=== PATIENT | female | born 1980 | race Caucasian/White ===

== ENCOUNTER 2017-10-12 21:06 | Emergency (ER) | payer MEDICAID, OTHER ==
[~2017-10-12] VITALS: Ht 154.9 cm; Wt 100.0 kg
[~2017-10-12 21:06] MED LIST: CYCL-36 PO; NAPR-576 PO
[2017-10-12 21:11] VITALS: BP 131/86; PULSE 107; RESP 18; TEMP 98.9; O2SAT 99
[2017-10-12] MEDS ORDERED: SODIUM CHLOR 0.9% 1000 ML INJ 1,000 ML IV SCH (22:17)
[2017-10-12 22:29] VITALS: RESP 16; O2SAT 99
[2017-10-12] MEDS ORDERED: SODIUM CHLORIDE 0.9% FLUSH 10 ML FLUSH IV FLUSH PRN (22:30)
[2017-10-12 22:37] LABS: AUTOMATED NEUTROPHIL # 7.3 TH/MM3 (1.8-7.7); BASOPHIL # 0.1 TH/MM3 (0-0.2); BASOPHIL % 0.7 % (0.0-2.0); EOSINOPHIL # 0.1 TH/MM3 (0-0.4); EOSINOPHIL % 0.8 % (0.0-4.0); HEMOGLOBIN 12.5 GM/DL (11.6-15.3); LYMPH % 23.5 % (9.0-44.0); LYMPHOCYTE # 2.6 TH/MM3 (1.0-4.8); MEAN CELL VOLUME 79.8 FL (80.0-100.0); MEAN CORPUSCULAR HGB CONC 33.8 % (32.0-36.0); MEAN PLATELET VOLUME 7.2 FL (7.0-11.0); MONO % 8.5 % (0.0-8.0); MONOCYTE # 0.9 TH/MM3 (0-0.9); NEUT % 66.5 % (16.0-70.0); PLATELET COUNT 272 TH/MM3 (150-450); RED BLOOD COUNT 4.64 MIL/MM3 (4.00-5.30); RED CELL DISTRIBUTION WIDTH 17.4 % (11.6-17.2); WHITE BLOOD COUNT 10.9 TH/MM3 (4.0-11.0)
[2017-10-12 22:58] LABS: AST (GOT) 27 U/L (15-37); BICARBONATE 24.9 MEQ/L (21.0-32.0); BLOOD UREA NITROGEN 9 MG/DL (7-18); CALCIUM 8.6 MG/DL (8.5-10.1); CHLORIDE 107 MEQ/L (98-107); CREATININE 0.65 MG/DL (0.50-1.00); GLOMERULAR FILTRATION RATE 103 ML/MIN (>89); GLUCOSE,RANDOM 75 MG/DL (74-106); SODIUM (NA) 139 MEQ/L (136-145)
[2017-10-12 23:16] LABS: ALKALINE PHOSPHATASE 85 U/L (45-117); ALT (GPT) 36 U/L (10-53); TOTAL BILIRUBIN ADULT 0.2 MG/DL (0.2-1.0)
--- NOTE | 2017-10-12 23:39 | PD ---
HPI Chief Complaint: Related Problem Time Seen by Provider: 22:17 Travel History International Travel<30 days: No Contact w/Intl Traveler<30days: No Traveled to known affect area: No History of Present Illness HPI Patient is a 37-year-old female at approximately 11 weeks gestational age presents emergency department for evaluation of vaginal bleeding and left lower quadrant abdominal cramping. Patient states been going on and off for the past 48 hours, she went to her SENIOR MEDICAL BILLING SPECIALIST today who did a pelvic exam noted that she was having some mild bleeding but did not give her an exhalation Y. She also had an ultrasound today which did show an 11 week gestation. She was discharged home. She states the pain and bleeding persisted and she has had passing pain need a quarter sized clots. She has not had any hypovolemia symptoms. She knows that she has an Rh- blood type has not had a RhoGam shot yet this . She states that her also has Rh- blood type. No chest pain no shortness of breath no nausea vomiting diarrhea constipation. Symptoms moderate, intermittent, context and associated signs symptoms as above PFSH Past Medical History Diminished Hearing: No Genitourinary: Yes (UTI'S. LAST ONE ABOUT 6 MONTHS AGO.) Integumentary: Yes (WOUND ON LEFT THIGH--HERE 04/14/08) Immunizations Current: Yes ?: : 1 Para: 1 Miscarriage: 0 : 0 Past Surgical History Section: Yes (x 1) Oral Surgery: Yes (WISDOM TEETH OUT) Social History Alcohol Use: No Tobacco Use: No Substance Use: No Allergies-Medications (Allergen,Severity, Reaction): Coded Allergies: amoxicillin (Unverified Adverse Reaction, Severe, Nausea/Vomiting, 10/12/17) penicillin G (Unverified Adverse Reaction, Severe, Nausea/Vomiting, 10/12/17 ) Reported Meds & Prescriptions Reported Meds & Active Scripts Active Metrogel Vaginal Gel (Metronidazole Vaginal Gel) 0.75 % Gel 1 Appl VAGINAL HS Flexeril (Cyclobenzaprine HCl) 10 Mg Tab 10 Mg PO Q12HR Naproxen 500 Mg Tab 500 Mg PO Q12HR Review of Systems Except as stated in HPI: all other systems reviewed are Neg Physical Exam Narrative GENERAL: Well-developed well-nourished no obvious distress, obese. SKIN: Focused skin assessment warm/dry. HEAD: Atraumatic. Normocephalic. EYES: Pupils equal and round. No scleral icterus. No injection or drainage. ENT: No nasal bleeding or discharge. Mucous membranes pink and moist. NECK: Trachea midline. No JVD. CARDIOVASCULAR: Regular rate and rhythm. No murmur appreciated. RESPIRATORY: No accessory muscle use. Clear to auscultation. Breath sounds equal bilaterally. GASTROINTESTINAL: Abdomen soft, non-tender, nondistended. Hepatic and splenic margins not palpable. GENITOURINARY: Exam performed with female nurse lamination builder present all times, scant blood in the vaginal vault associate with membranes at the cervical eyes, the eyes is closed, bimanual exam is deferred as the patient had some tenderness from pelvic ultrasound. No tears seen. MUSCULOSKELETAL: No obvious deformities. No clubbing. No cyanosis. No edema. NEUROLOGICAL: Awake and alert. No obvious cranial nerve deficits. Motor grossly within normal limits. Normal speech. PSYCHIATRIC: Appropriate mood and affect; insight and judgment normal. Data Data Last Documented VS Vital Signs Date Time Temp Pulse Resp B/P (MAP) Pulse Ox O2 Delivery O2 Flow Rate FiO2 10/12/17 22:29 16 99 Room Air 10/12/17 21:11 98.9 107 131/86 (101) Orders Orders Beta Hcg (Quant/Titer) (10/12/17 22:17) Complete Blood Count With Diff (10/12/17 22:17) Comprehensive Metabolic Panel (10/12/17 22:17) Urinalysis - C+S If Indicated (10/12/17 22:17) Iv Access Insert/Monitor (10/12/17 22:17) Ecg Monitoring (10/12/17 22:17) Oximetry (10/12/17 22:17) Sodium Chlor 0.9% 1000 Ml Inj (Ns 1000 M (10/12/17 22:17) Sodium Chloride 0.9% Flush (Ns Flush) (10/12/17 22:30) Abo/Rh Blood Type (10/12/17 22:17) Wet Prep Profile (10/12/17 22:17) Gc And Chlamydia Pcr (10/12/17 22:17) Us Pelvis (Ques Preg/Ectopic) (10/12/17 ) Rhogam Only (10/13/17 00:03) Sodium Chlor 0.9% 250 Ml Inj (Ns 250 Ml (10/13/17 00:15) Ed Discharge Order (10/13/17 00:37) Labs Laboratory Tests Test 10/12/17 22:25 10/13/17 00:10 White Blood Count 10.9 TH/MM3 Red Blood Count 4.64 MIL/MM3 Hemoglobin 12.5 GM/DL Hematocrit 37.0 % Mean Corpuscular Volume 79.8 FL Mean Corpuscular Hemoglobin 27.0 PG Mean Corpuscular Hemoglobin Concent 33.8 % Red Cell Distribution Width 17.4 % Platelet Count 272 TH/MM3 Mean Platelet Volume 7.2 FL Neutrophils (%) (Auto) 66.5 % Lymphocytes (%) (Auto) 23.5 % Monocytes (%) (Auto) 8.5 % Eosinophils (%) (Auto) 0.8 % Basophils (%) (Auto) 0.7 % Neutrophils # (Auto) 7.3 TH/MM3 Lymphocytes # (Auto) 2.6 TH/MM3 Monocytes # (Auto) 0.9 TH/MM3 Eosinophils # (Auto) 0.1 TH/MM3 Basophils # (Auto) 0.1 TH/MM3 CBC Comment DIFF FINAL Differential Comment Blood Urea Nitrogen 9 MG/DL Creatinine 0.65 MG/DL Random Glucose 75 MG/DL Total Protein 7.0 GM/DL Albumin 3.0 GM/DL Calcium Level 8.6 MG/DL Alkaline Phosphatase 85 U/L Aspartate Amino Transf (AST/SGOT) 27 U/L Alanine Aminotransferase (ALT/SGPT) 36 U/L Total Bilirubin 0.2 MG/DL Sodium Level 139 MEQ/L Potassium Level 3.7 MEQ/L Chloride Level 107 MEQ/L Carbon Dioxide Level 24.9 MEQ/L Anion Gap 7 MEQ/L Estimat Glomerular Filtration Rate 103 ML/MIN Human Chorionic Gonadotropin, Quant 76350 MIU/ML Clue Cells (Wet Prep) PRESENT Vaginal Trichomonas (Wet Prep) NONE SEEN Vaginal Yeast (Wet Prep) NONE SEEN Chlamydia trachomatis DNA (PCR) NOT DETECTED Neisseria gonorrhoeae DNA (PCR) NOT DETECTED MDM Medical Decision Making Medical Screen Exam Complete: Yes Emergency Medical Condition: Yes Differential Diagnosis Rh mismatch, anemia, threatened miscarriage, inevitable miscarriage. Narrative Course Patient room to the emergency department, RhoGam given, she is not significantly anemic, ultrasound is actually reassuring Last 24 hours Impressions Pelvis Ultrasound 10/12/17 0000 Signed Impressions: Service Date/Time: Thursday, October 12, 2017 23:13 - CONCLUSION: Intrauterine gestational sac with a apparently viable intrauterine fetus estimated to be 12 weeks 2 days old. Josue Dubon MD Patient reassured, discussed that this is a threatened miscarriage. She is too early for any advanced countermeasures, we discussed no drinking no smoking pelvic rest and taking vitamins. No illicit substance use. Discussed that she needs follow-up with her SENIOR MEDICAL BILLING SPECIALIST and discuss return to ED criteria. She was offered Tylenol emergency department and declined. She is stable for discharge Diagnosis Primary Impression: Abdominal pain affecting Additional Impressions: Bacterial vaginosis Threatened miscarriage Rh incompatibility Qualified Codes: T80.40XA - Rh incompatibility reaction due to transfusion of blood or blood products, unspecified, initial encounter Med/Other Pt SpecificInfo: Prescription(s) given Scripts Metronidazole Vaginal Gel (Metrogel Vaginal Gel) 0.75 % Gel 1 APPL VAGINAL HS for Infection, #1 TUBE 0 Refills Prov: Ham Naqvi MD 10/13/17 Disposition: DISCHARGE HOME Condition: Stable Ham Naqvi MD October 12, 2017 23:38
[2017-10-13] MEDS ORDERED: SODIUM CHLOR 0.9% 250 ML INJ 250 ML IV ONE (00:15)
--- NOTE | 2017-10-13 00:22 | RADRPT ---
EXAM DATE/TIME: 10/12/2017 23:13 [facility] COMPARISON: No previous studies available for comparison. INDICATIONS : Bleeding and pain. LAB(S): Beta-hC,094 MEDICAL HISTORY : . UTI. SURGICAL HISTORY : section. [place] teeth removal. ENCOUNTER: Initial ACUITY: 1 day PAIN SCORE: 5/10 LOCATION: Bilateral pelvis MEASUREMENTS: UTERUS: 13.3 x 11.4 x 8.5 cm ENDOMETRIAL STRIPE: 13 mm RIGHT OVARY: 8.0 x 7.4 x 5.5 cm LEFT OVARY: 5.4 x 3.3 x 3.4 cm FREE FLUID: No CROWN RUMP LENGTH: 5.73 cm = 12 WKS 2 DAYS FHR: 179 BPM FINDINGS: UTERUS: The myometrium has homogeneous echotexture without mass.The large intrauterine gestational sac measur ing 5.5 x 4.7 x 6.4 cm. Positive heart tones at 179 beats per minute. The intrauterine zoey esponds with a week 2 day gestation crown lump length of 5.5 cm RIGHT OVARY: Ovary contains no mass or significant cystic lesion. LEFT OVARY: Ovary contains no mass or significant cystic lesion. MISCELLANEOUS: No free fluid. CONCLUSION: Intrauterine gestational sac with a apparently viable intrauterine fetus estimated to be 12 weeks 2 d ays old. Josue Dubon MD on October 13, 2017 at 0:19 Board Certified Radiologist. This report was verified electronically.
[2017-10-13] MEDS ORDERED: METR0.7528 VAGINAL (00:37)
== END 2017-10-13 02:01 | disposition home or self-care (01) ==
LOC: NEPC 21:06
DX: O20.0 Threatened abortion (principal); O23.591 Infection of other part of genital tract in pregnancy, first trimester; O36.0910 Maternal care for other rhesus isoimmunization, first trimester, not applicable or unspecified; Z3A.12 12 weeks gestation of pregnancy
CPT/HCPCS: 76700; 80053; 84702; 85025; 87210; 87491; 87591; 90384; 96360; 96361; 96372; 99284; J7030; J2790

== ENCOUNTER 2017-10-23 02:45 | Emergency (ER) | payer OTHER ==
[~2017-10-23] VITALS: Ht 154.9 cm; Wt 107.3 kg
[~2017-10-23 02:45] MED LIST changes: +METR0.7528 VAGINAL
[2017-10-23 02:51] VITALS: BP 127/70; PULSE 109; RESP 22; TEMP 98.7; O2SAT 96
--- NOTE | 2017-10-23 03:40 | PD ---
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 Patient was seen in emergency room 11 days ago for vaginal bleeding and pelvic pain. Pelvic ultrasound done at that time shows IUP viable fetus about 12 weeks 2 days. Patient states that she continues to have intermittent vaginal bleeding since then. Patient states that she has increasing vaginal bleeding with passing blood and blood clots tonight. Patient complained of severe pelvic pain also. Patient denies any chest pain or shortness of breath. Patient denies any dysuria frequency. Patient denies any fever chills. Patient is 3 para 1. Patient's blood type O-. Patient was given RhoGam 11 days ago in emergency room. PFSH Past Medical History Diminished Hearing: No Genitourinary: Yes (UTI'S. ) Integumentary: Yes (WOUND ON LEFT THIGH--HERE 04/14/08) Immunizations Current: Yes Tetanus Vaccination: Never Vaccinated ?: : 3 Para: 1 Miscarriage: 0 : 0 Past Surgical History Section: Yes (x 1) Oral Surgery: Yes (WISDOM TEETH OUT) Social History Alcohol Use: No Tobacco Use: No Substance Use: No Allergies-Medications (Allergen,Severity, Reaction): Coded Allergies: amoxicillin (Unverified Adverse Reaction, Severe, Nausea/Vomiting, 10/12/17) penicillin G (Unverified Adverse Reaction, Severe, Nausea/Vomiting, 10/12/17 ) Reported Meds & Prescriptions Reported Meds & Active Scripts Active Review of Systems General / Constitutional: No: Fever Eyes: No: Visual changes HENT: No: Headaches Cardiovascular: No: Chest Pain or Discomfort Respiratory: No: Shortness of Breath Gastrointestinal: No: Abdominal Pain Genitourinary: Positive: Pelvic Pain, Vaginal Bleeding, No: Dysuria Musculoskeletal: No: Pain Skin: No Rash Neurologic: No: Weakness Psychiatric: No: Depression Endocrine: No: Polydipsia Hematologic/Lymphatic: No: Easy Bruising Physical Exam Narrative GENERAL: Well-nourished, well-developed patient. SKIN: Focused skin assessment warm/dry. HEAD: Normocephalic. EYES: No scleral icterus. No injection or drainage. NECK: Supple, trachea midline. No JVD or lymphadenopathy. CARDIOVASCULAR: Regular rate and rhythm without murmurs, gallops, or rubs. RESPIRATORY: Breath sounds equal bilaterally. No accessory muscle use. GASTROINTESTINAL: Abdomen soft, non-tender, nondistended. MUSCULOSKELETAL: No cyanosis, or edema. BACK: Nontender without obvious deformity. No CVA tenderness. BRILLIANDEER LOOPER exam: Patient has blood and blood clots in the vaginal vault. Cervix is open. Uterus is enlarged with moderate tenderness on palpation. No adnexal mass or tenderness. Data Data Last Documented VS Vital Signs Date Time Temp Pulse Resp B/P (MAP) Pulse Ox O2 Delivery O2 Flow Rate FiO2 10/23/17 02:51 98.7 109 22 127/70 (89) 96 Orders Orders Complete Blood Count With Diff (10/23/17 03:33) Basic Metabolic Panel (Bmp) (10/23/17 03:33) Morphine Inj (Morphine Inj) (10/23/17 03:45) Ondansetron Odt (Zofran Odt) (10/23/17 03:45) Us Pelvis Preg W Transvaginal (10/23/17 03:33) Misoprostol (Cytotec) (10/23/17 06:45) Ed Discharge Order (10/23/17 06:54) Labs Laboratory Tests Test 10/23/17 03:48 White Blood Count 15.3 TH/MM3 Red Blood Count 4.56 MIL/MM3 Hemoglobin 12.3 GM/DL Hematocrit 35.9 % Mean Corpuscular Volume 78.8 FL Mean Corpuscular Hemoglobin 26.8 PG Mean Corpuscular Hemoglobin Concent 34.1 % Red Cell Distribution Width 17.1 % Platelet Count 336 TH/MM3 Mean Platelet Volume 7.5 FL Neutrophils (%) (Auto) 69.1 % Lymphocytes (%) (Auto) 22.7 % Monocytes (%) (Auto) 6.8 % Eosinophils (%) (Auto) 1.1 % Basophils (%) (Auto) 0.3 % Neutrophils # (Auto) 10.5 TH/MM3 Lymphocytes # (Auto) 3.5 TH/MM3 Monocytes # (Auto) 1.0 TH/MM3 Eosinophils # (Auto) 0.2 TH/MM3 Basophils # (Auto) 0.0 TH/MM3 CBC Comment DIFF FINAL Differential Comment Blood Urea Nitrogen 11 MG/DL Creatinine 0.60 MG/DL Random Glucose 87 MG/DL Calcium Level 8.6 MG/DL Sodium Level 139 MEQ/L Potassium Level 4.0 MEQ/L Chloride Level 107 MEQ/L Carbon Dioxide Level 22.2 MEQ/L Anion Gap 10 MEQ/L Estimat Glomerular Filtration Rate 113 ML/MIN [facility] Medical Decision Making Medical Screen Exam Complete: Yes Emergency Medical Condition: Yes Medical Record Reviewed: Yes Interpretation(s) 6:45 AM. Last Impressions Pelvis Ultrasound 10/23/17 0333 Signed Impressions: Service Date/Time: Monday, October 23, 2017 04:11 - CONCLUSION: 1. Lack of heart rate activity consistent with demise. 2. Bilateral simple ovarian cysts. The largest measures 7 cm on the right. Sunny Hanna Jr., MD 6:45 AM. CBC WBC 15.3. Normal differential. BMP within normal limits. Differential Diagnosis Differential diagnosis including incomplete AB, complete AB. Narrative Course 37 years old female with pelvic pain and vaginal bleeding. Patient is a bowel 13-1/2 week . Patient has vaginal bleeding for the past 2 weeks and passing blood and blood clots tonight. Pelvic ultrasound confirmed demise. Cytotec 800 mcg rectally given. Diagnosis Primary Impression: Incomplete Patient Instructions: General Instructions Additional Instructions: Take medication as needed for pain. Follow-up with gun repair clerk. Return if severe pelvic pain, excessive vaginal bleeding. Med/Other Pt SpecificInfo: Prescription(s) given Scripts Tramadol (Ultram) 50 Mg Tab 50 MG PO Q6H Y for PAIN, #12 TAB 0 Refills Prov: Alfred Bentley MD 10/23/17 Ibuprofen (Ibuprofen) 600 Mg Tab 600 MG PO TID for Pain, #30 TAB 0 Refills Prov: Alfred Bentley MD 10/23/17 Disposition: DISCHARGE HOME Condition: Stable Alfred Bentley MD October 23, 2017 03:40
[2017-10-23] MEDS: ONDANSETRON ODT 4 MG TAB PO ONE ×2 (03:43→03:45)
[2017-10-23] MEDS ORDERED: MORPHINE SULFATE 4 MG/ML INJ IV PUSH ONE (03:45)
[2017-10-23 04:07] LABS: AUTOMATED NEUTROPHIL # 10.5 TH/MM3 (1.8-7.7); BASOPHIL % 0.3 % (0.0-2.0); EOSINOPHIL # 0.2 TH/MM3 (0-0.4); EOSINOPHIL % 1.1 % (0.0-4.0); HEMATOCRIT 35.9 % (35.0-46.0); HEMOGLOBIN 12.3 GM/DL (11.6-15.3); LYMPH % 22.7 % (9.0-44.0); LYMPHOCYTE # 3.5 TH/MM3 (1.0-4.8); MEAN CELL VOLUME 78.8 FL (80.0-100.0); MEAN CORPUSCULAR HEMOGLOBIN 26.8 PG (27.0-34.0); MEAN CORPUSCULAR HGB CONC 34.1 % (32.0-36.0); MEAN PLATELET VOLUME 7.5 FL (7.0-11.0); MONO % 6.8 % (0.0-8.0); NEUT % 69.1 % (16.0-70.0); PLATELET COUNT 336 TH/MM3 (150-450); RED BLOOD COUNT 4.56 MIL/MM3 (4.00-5.30); RED CELL DISTRIBUTION WIDTH 17.1 % (11.6-17.2); WHITE BLOOD COUNT 15.3 TH/MM3 (4.0-11.0)
[2017-10-23 04:32] LABS: BICARBONATE 22.2 MEQ/L (21.0-32.0); CALCIUM 8.6 MG/DL (8.5-10.1); CREATININE 0.6 MG/DL (0.50-1.00)
--- NOTE | 2017-10-23 06:20 | RADRPT ---
EXAM DATE/TIME: 10/23/2017 04:11 [facility] COMPARISON: US PELVIS ([facility] PREG/ECTOPIC), October 12, 2017, 23:13. INDICATIONS : Vaginal bleeding with pain. LAB(S): Beta-hCG: N/A MEDICAL HISTORY : . SURGICAL HISTORY : section. [place] teeth removal. ENCOUNTER: Subsequent ACUITY: 1 week PAIN SCORE: 6/10 LOCATION: Bilateral pelvis MEASUREMENTS: UTERUS: 16.1 x 6.6 x 8.8 cm RIGHT OVARY: Not visualized LEFT OVARY: Not visualized FREE FLUID: No CROWN RUMP LENGTH: 5.5 = 12 WKS 1 DAYS FHR: BPM FINDINGS: UTERUS: A single intrauterine gestation is observed. This is low within the lower uterine segment. [place]-rump length measures 5.5 cm which equals 12 weeks one day gestational age. Prior study gestational age wa s 12 weeks 2 days. No heart rate activity is identified on the current study. RIGHT OVARY: Within the right adnexa only seen on the transabdominal images is a simple cyst that measures 7.0 cm x 4.3 cm. This is slightly smaller from the prior study. The right ovary is not seen. LEFT OVARY: There is a small simple cyst within the left adnexa measuring 3.0 x 2.6 x 2.4 cm. The left ovary is n ot identified. This cyst is stable from the prior study. MISCELLANEOUS: No free fluid. CONCLUSION: 1. Lack of heart rate activity consistent with demise. 2. Bilateral simple ovarian cysts. The largest measures 7 cm on the right. Sunny Hanna Jr., MD on October 23, 2017 at 6:13 Board Certified Radiologist. This report was verified electronically.
[2017-10-23] MEDS ORDERED: MISOPROSTOL 200 MCG TAB RECTAL ONE (06:45)
[2017-10-23] MEDS ORDERED: IBUP-232 PO (06:55)
[2017-10-23] MEDS ORDERED: TRAM50 PO (06:55)
[2017-10-23 07:31] VITALS: BP 123/78; PULSE 94; RESP 18; O2SAT 98
== END 2017-10-23 08:03 | disposition home or self-care (01) ==
LOC: NEPC 02:45
DX: O03.4 Incomplete spontaneous abortion without complication (principal)
CPT/HCPCS: 76801; 76817; 80048; 85025; 96374; 99284; J2270